=== PATIENT | male | born 1965 | race Caucasian/White ===

== ENCOUNTER → 2017-07-20 | Outpatient (CLI) | payer OTHER | END | disposition home or self-care (01) | LOC: C.RDSM 15:01 | PROVIDERS: ATTEND Orthopaedic Surgery | DX: T14.8XXA Other injury of unspecified body region, initial encounter (principal); X58.XXXA Exposure to other specified factors, initial encounter ==

== ENCOUNTER → 2017-08-03 | Outpatient (CLI) | payer OTHER | LOC: C.RDSM 15:06 | PROVIDERS: ATTEND Orthopaedic Surgery | DX: S62.609A Fracture of unspecified phalanx of unspecified finger, initial encounter for closed fracture (principal); X58.XXXA Exposure to other specified factors, initial encounter ==